=== PATIENT | male | born 1970 | race Caucasian/White ===

== ENCOUNTER 2022-03-20 11:37 | Emergency (ER) | payer OTHER, SELFPAY ==
[2022-03-20 11:38] VITALS: BP 175/118; PULSE 73; RESP 18; TEMP 36.9; O2SAT 98; BMI 36.7
--- NOTE | 2022-03-20 11:45 | PC.NURSE ---
UA sent to lab.
[2022-03-20 11:48] LABS: Microscopic, Urine URINE MICROSCOPIC (MICROSCOPIC)
--- NOTE | 2022-03-20 11:49 | PC.NURSE ---
DR. OVIEDO AT BEDSIDE FOR EVALUATION
[2022-03-20 11:50] LABS: Appearance,Urine CLEAR (Clear); Blood, Urine 2+ (Negative); Color,Urine YELLOW (Yellow); Glucose,Urine (UA) Negative (Negative); Ketones,Urine TRACE (Negative); Leukocyte Esterase,Urine Negative (Negative); Nitrate,Urine Negative (Negative); Protein,Urine 2+ (Negative); Urobilinogen,Urine 0.2 EU/dl (0.2)
[2022-03-20 11:51] VITALS: BMI 36.7
[2022-03-20 11:53] LABS: Bilirubin,Urine 1+ (Negative)
--- NOTE | 2022-03-20 11:54 | HMH.EDGENADL ---
Discharge Plan Disposition Chief Complaint: Abdominal Pain Instructions Patient Instructions: DI for Acute Abdominal Pain Discharge ED Provider: Rodrigo Youngblood General Adult HPI General Chief complaint: Abdominal Pain Stated complaint: Stomach pain,vomiting Time Seen by Provider: 03/20/22 11:40 Mode of Arrival: Ambulatory Limitations: No Limitations Description of Symptoms (Recalled from ER Triage Doc. by RN): PT REPORTS BURNING ABDOMINAL PAIN WITH N/V/D SINCE LAST NIGHT History of Present Illness HPI narrative: Patient presents with epigastric pain, vomiting and diarrhea that began last evening after his significant other served him spicy pizza reportedly. He denies chest pain or shortness of air symptoms are described as moderate to severe and worse with food. Related Data Allergies Allergy/AdvReac Type Severity Reaction Status Date / Time No Known Allergies Allergy Verified 03/20/22 11:54 PFSH [facility] Social History Smoking Status: Current every day smoker ROS Obtained: Yes All systems reviewed & no additional complaints except as documented Physical Exam General General appearance: alert and in no apparent distress Head Head exam: atraumatic, normocephalic and normal inspection Eye Eye exam: Present normal appearance, PERRL and EOMI ENT ENT exam: Present normal exam, normal oropharynx, mucous membranes moist, TM's normal bilaterally and normal external ear exam Neck Neck exam: Present normal inspection, full ROM and trachea midline; Absent meningismus or lymphadenopathy Chest Chest inspection: Present normal inspection and symmetric chest wall rise; Absent tenderness Respiratory Respiratory exam: Present normal lung sounds bilaterally; Absent respiratory distress Cardiovascular Cardiovascular exam: Present regular rate and normal rhythm; Absent JVD Abdominal Exam Abdominal exam: Present tenderness (Epigastric tenderness that is mild to moderate, there is no right upper quadrant tenderness. There is no rebound or guarding.) Extremities Exam Extremities exam: Present normal inspection, full ROM and normal capillary refill; Absent calf tenderness Back Exam Back exam: Present normal inspection; Absent tenderness Neurological Exam Neurological exam: Present alert and oriented X3 Psychiatric Psychiatric exam: Present normal affect and normal mood Skin Skin exam: Present warm, dry, intact and normal color Lymphatic Lymphatic Findings: no adenopathy Medical Decision Making Medical Records Medical records reviewed: Yes I reviewed the patient's medical records. Juan Inquiry Pt receiving controlled substance: No Vital Signs: 03/20/22 11:38 Temperature 98.4 F Temperature Source Oral Pulse Rate [Radial] 73 Respiratory Rate 18 Blood Pressure [Right Arm] 175/118 H Blood Pressure Mean [Right Arm] 137 Blood Pressure Source [Right Arm] Automatic Cuff Blood Pressure Position [Right Arm] Sitting 02 Sat by Pulse Oximetry 98 Oxygen Delivery Method Room Air Lab Data Lab Results 03/20/22 11:43: Urine Color Yellow, Urine Appearance Clear, Urine pH 8.0, Ur Specific [place] 1.020, Urine Protein 2+, Urine Glucose (UA) Negative, Urine Ketones Trace, Urine Blood 2+, Urine Nitrate Negative, Urine Bilirubin 1+ A, Urine Urobilinogen 0.2, Ur Leukocyte Esterase Negative Orders (Tests/Meds): ED MEDICATIONS Generic Name Dose Route Start Last Admin Trade Name Freq PRN Reason Stop Dose Admin Belladonna Alkaloids 60 ml 03/20/22 11:51 Belladonna Alkaloids 60 Ml Ml PO 03/20/22 11:52 ONCE ONE Sodium Chloride 1,000 mls @ 999 mls/hr 03/20/22 12:00 Sod Chlor 0.9% 1000ml Bag IV 03/20/22 13:00 .Q1H1M SVITLANA Ondansetron HCl 4 mg 03/20/22 11:51 Ondansetron 4mg/2ml Vial IV 03/20/22 11:52 ONCE ONE Pantoprazole Sodium 40 mg 03/20/22 11:51 Pantoprazole 40mg Vial IV 03/20/22 11:52 ONCE ONE Sodium Chloride 10 ml 03/20/22 11:51 S
[2022-03-20 12:00] VITALS: BP 207/131; PULSE 79; O2SAT 97
[2022-03-20 12:02] LABS: Bacteria,Urine Trace /lpf; Squamous Epithelial Cell,Urine Occasional #/hpf (0-5)
[2022-03-20 12:17] LABS: Basophils # 0.1 K/mm3 (0-0.2); Basophils % 0.4 % (0.1-2.0); Eosinophils # 0.1 K/mm3 (0.0-0.4); Eosinophils % 0.9 % (0.1-12.0); Hematocrit 50.1 % (42.0-52.0); Hemoglobin 16.3 g/dL (14.1-18.0); Lymphocytes % 7.7 % (10-50); Mean Corpuscular HGB Conc 32.6 g/dL (31.8-35.4); Mean Corpuscular Hemoglobin 31.2 pg (27.0-31.2); Mean Corpuscular Volume 95.7 fl (80-94); Mean Platelet Volume 7.5 fl (7.4-10.4); Monocytes # 0.3 K/mm3 (0.1-1.0); Monocytes % 2.3 % (1.7-9.3); Neutrophils # 11.2 K/mm3 (1.8-7.8); Neutrophils % 88.7 % (37.0-80.0); Platelet Count 402 K/mm3 (142-424); Red Blood Count 5.23 M/mm3 (4.60-6.20); White Blood Count 12.6 K/mm3 (4.8-10.8)
[2022-03-20 12:18] LABS: Chloride 103 mmol/L (98-107); Potassium 3.7 mmoL/L (3.5-5.1); Sodium 138 mmol/L (136-145)
[2022-03-20 12:21] LABS: Alanine Aminotransferase 28 U/L (12-78); Albumin Level 4.4 g/dl (3.5-5.0); Albumin/Globulin Ratio 1.3 (1.1-1.8); Alkaline Phosphatase 123 U/L (38-126); Anion Gap 10.7 mEq/L (5-15); Aspartate Amino Transferase 35 U/L (17-59); Bilirubin,Total 0.3 mg/dl (0.2-1.3); Blood Urea Nitrogen 11 mg/dl (9-20); Calcium 9.3 mg/dl (8.4-10.2); Carbon Dioxide 28 mmol/L (22.0-30.0); Creatinine Clearance Estimated 242 mL/min (50-200); Estimated Glomerular Filt Rate 143 ml/min (>60); GFR (African American) 173 ML/MIN (>60); Globulin 3.4 g/dL (1.3-3.2); Glucose 130 mg/dl (74-100); Lipase 523 U/L (23-300); Total Protein,Serum 7.8 g/dl (6.3-8.2)
[2022-03-20 12:22] LABS: MANUAL DIFFERENTIAL MANUAL DIFFERENTIAL (MANUAL DIFF)
[2022-03-20 12:30] LABS: Lymphocytes % 6 % (10-50); Monocytes % 1 % (2-9); Neutrophils % 93 % (42-76); Total Cells Counted 100
[2022-03-20 12:31] VITALS: BP 182/113; PULSE 69; O2SAT 96
[2022-03-20 12:31] LABS: Platelet Estimate Slight Increase; RBC Morphology Normal
--- NOTE | 2022-03-20 12:41 | CT_ITS ---
FINAL REPORT TECHNIQUE: IV contrast enhanced exam CLINICAL HISTORY: abd pain/panc FINDINGS: Abdomen: No acute density is seen within the lung bases. Gallbladder is unremarkable. Solid abdominal organs are unremarkable. No bowel obstruction is present. There is no free air. No fluid collection is seen. There is no adenopathy. Pelvis: The appendix is normal. No bowel wall thickening is present. There is no free fluid. No pelvic mass is seen. IMPRESSION: Unremarkable exam Reviewed, Interpreted and Dictated by Leigh Crawford MD Transcribed by Efrain Arciniega Authenticated and . [facility]
--- NOTE | 2022-03-20 13:02 | PC.NURSE ---
PT TO CT
--- NOTE | 2022-03-20 13:15 | PC.NURSE ---
PT RETURNED FROM CT
[2022-03-20 13:31] VITALS: BP 179/105; PULSE 73; O2SAT 96
[2022-03-20 14:00] VITALS: BP 193/119; PULSE 88; O2SAT 97
--- NOTE | 2022-03-20 14:01 | PC.NURSE ---
ED MD AT BEDSIDE TO DISCUSS POC WITH PT AND FAMILY
[2022-03-20 14:24] VITALS: BP 144/103; PULSE 82; RESP 17; TEMP 36.8; O2SAT 99
== END 2022-03-20 14:30 | disposition home or self-care (01) ==
PROVIDERS: Emergency Provider Emergency Medicine
DX: R10.9 Unspecified abdominal pain (principal); R11.2 Nausea with vomiting, unspecified; R19.7 Diarrhea, unspecified
CPT/HCPCS: 74177; 80053; 81001; 83690; 85007; 85025; 96365; 96375; 99284; J2405; Q9967

== ENCOUNTER 2023-05-03 08:30 | Emergency (ER) | payer OTHER, SELFPAY ==
[2023-05-03 08:31] VITALS: BP 171/127; PULSE 78; RESP 16; TEMP 36.7; O2SAT 94; BMI 35.9
--- NOTE | 2023-05-03 08:53 | PC.NURSE ---
DR ESPARZA AT BEDSIDE
--- NOTE | 2023-05-03 08:57 | CT_ITS ---
FINAL REPORT CLINICAL HISTORY: lower abd pain, n/v decreased bm/flatus COMPARISON: 03/20/2022 FINDINGS: CT OF THE ABDOMEN AND PELVIS WITH CONTRAST Axial CT images of the abdomen and pelvis were obtained after the administration of IV contrast. Coronal and sagittal reformatted images were also obtained and reviewed. This study was performed with techniques to keep radiation doses as low as reasonably achievable (ALARA). Individualized dose reduction techniques using automated exposure control or adjustment of mA and/or kV according to the patient's size were employed. Abdomen: The lung bases are clear. The heart is normal in size. There is mild fatty infiltration of the liver present. The spleen is unremarkable. No adrenal mass is present. The pancreas has an unremarkable appearance. The kidneys are normal, without evidence of mass or hydronephrosis. The aorta is normal in caliber. There is no free fluid or adenopathy. No mass or abnormal fluid collection is seen. A small umbilical hernia containing fat is present. Pelvis: The appendix is normal in appearance. There is widespread diverticulosis of the colon, without evidence of acute inflammatory change. The urinary bladder has a mildly thickened wall, likely inflammatory. There is no evidence of mass or adenopathy. There is no evidence of bowel obstruction. IMPRESSION: No evidence of acute intra-abdominal process. Mild bladder wall thickening, likely inflammatory. Reviewed, Interpreted and Dictated by Fantasma Pizano III, MD Transcribed by Lesley Castillo Authenticated and [facility]
--- NOTE | 2023-05-03 08:59 | ED_ITS ---
Discharge Plan Disposition Patient Disposition: Home, Self-Care Prescriptions Prescriptions: New ondansetron 4 mg tablet,disintegrating 4 mg PO Q6H PRN (Reason: nausea and vomiting) 5 Days Qty: 20 0RF No Action ondansetron HCl 4 mg tablet 4 mg PO Q6H PRN (Reason: nausea and vomiting) Qty: 14 0RF hydrocodone-acetaminophen 5-325 mg tablet 1 tab PO Q6H PRN (Reason: pain) Qty: 14 0RF lansoprazole [Prevacid] 30 mg capsule,delayed release(DR/EC) 30 mg PO Q12H Qty: 30 0RF Referrals Follow up/Referrals: Provider,Referral, MD [Primary Care Provider] - See instructions Activity Restrictions/Add. Instructions Additional Instructions/Restrictions: Your evaluation for your nausea vomiting abdominal discomfort did not yield an emergent medical condition however your urinalysis did show microscopic blood in your urine this is nonspecific and there are many causes of this including dehydration. Please follow-up with your primary care doctor to ensure resol ution and if you have consistent or persistent blood in your urine I would recommend you follow-up with a urologist as we cannot definitively rule out bladder related malignancy. Clinical Impressions Clinical Impression: Abdominal pain, lower, Nausea & vomiting, Microscopic hematuria Instructions Patient Instructions: DI for Acute Abdominal Pain Discharge ED Provider: Angie Biggs General Adult HPI General Chief complaint: Abdominal Pain Stated complaint: adominal pain Time Seen by Provider: 05/03/23 08:52 Mode of Arrival: Ambulatory Source of Information: Patient Limitations: No Limitations Description of Symptoms (Recalled from ER Triage Doc. by RN): Patient reports all over abdomen pain that started on Sunday. Does report vomiting. States he has had this in the past and it was gastroenteritis and it feels like that ag ain. History of Present Illness HPI narrative: Patient is a 53-year-old male presenting today with 2 days of nausea and vomiting decreased flatus and bowel movements. Patient denies any history of any abdominal surgeries denies any diarrhea. Denies any fevers or chills. Does state that he had 8 alcoholic beverages on Sunday the night before this began. However he denies any epigastric abdominal discomfort no history of any pancrea titis. No urinary symptoms including hematuria. Related Data Previous Rx's Medication Instructions Recorded hydrocodone 5 mg-acetaminophen 325 1 tab PO Q6H PRN pain #14 tabs 03/20/22 mg tablet lansoprazole 30 mg capsule,delayed 30 mg PO Q12H #30 caps 03/20/22 release (Prevacid) ondansetron HCl 4 mg tablet 4 mg PO Q6H PRN nausea and 03/20/22 vomiting #14 tabs ondansetron 4 mg disintegrating 4 mg PO Q6H PRN nausea and 05/03/23 tablet vomiting 5 days #20 tabs Allergies Allergy/AdvReac Type Severity Reaction Status Date / Time No Known Allergies Allergy Verified 03/20/22 11:54 [facility] Disclaimer: The information contained in this section may have been updated after the patient was seen, as this information can be updated by other users. Social History Smoking Status: Former smoker alcohol intake: current current occupational status: other Travel in the last 8 weeks: None ROS Obtained: Yes All systems reviewed & no additional complaints except as documented Physical Exam General General appearance: alert Respiratory Respiratory exam: Present normal lung sounds bilaterally; Absent respiratory distress Cardiovascular Cardiovascular exam: Present regular rate; Absent tachycardia Abdominal Exam Abdominal exam: Present soft, distention and tenderness (Right lower quadrant tenderness with deep palpation no significant rebound or guarding or masses for) Neurological Exam Neurological exam: Present alert Medical Decision Making Juan Inquiry Pt receiving controlled substance: No Juan was queried for this patient: No Vital Signs: 05/03/23 08:31 Temperature 98.1 F Temperature Source Oral Pulse Rate [Radial] 78 Respiratory Rate 16 Blood Pressure [Right Arm] 171/127 H Blood Pressure Mean [Right Arm] 141 Blood Pressure Source [Right Arm] Automatic Cuff Blood Pressure Position [Right Arm] Sitting 02 Sat by Pulse Oximetry 94 L Oxygen Delivery Method Room Air Lab Data Lab results reviewed: Yes I reviewed the patient's lab results. Lab Results 05/03/23 08:35: Urine Color Yellow, Urine Appearance Clear, Urine pH 6.0, Ur Specific [place] 1.025, Urine Protein 2+, Urine Glucose (UA) Negative, Urine Ketones 1+, Urine Blood 2+, Urine Nitrate Negative, Urine Bilirubin 1+ A, Urine Urobilinogen 0.2, Ur Leukocyte Esterase Negative, Urine RBC 3-5, Urine WBC None, Ur Squamous Epith Cells Occasional, Urine Bacteria None, Urine Mucus Trace 05/03/23 08:50: WBC 14.5 H, RBC 5.30, Hgb 16.3, Hct 48.6, MCV 91.5, MCH 30.8, MCHC 33.6, RDW 13.3, Plt Count 373, MPV 6.9 L, Neut % (Auto) 75.2, Lymph % (Auto) 19.5, [place] % (Auto) 4.0, Eos % (Auto) 0.7, Baso % (Auto) 0.5, Neut # (Auto) 10.9 H, Lymph # (Auto) 2.8, [place] # (Auto) 0.6, Eos # (Auto) 0.1, Baso # (Auto) 0.1, Sodium 134 L, Potassium 3.5, Chloride 98, Carbon Dioxide 28, Anion Gap 11.5, BUN 11, Creatinine 0.80, Estimated Creat Clear 175, Estimated GFR 102, Est GFR ( Amer) 123, Glucose 151 H, Calcium 8.7, Total Bilirubin 0.9, AST 57, ALT 69, Alkaline Phosphatase 83, Total Protein 8.0, Albumin 4.3, Globulin 3.7 H, Albumin/Globulin Ratio 1.2, Lipase 94 05/03/23 08:50 05/03/23 08:50 Orders (Tests/Meds): ED MEDICATIONS Generic Name Dose Route Start Last Admin Trade Name Freq PRN Reason Stop Dose Admin Sodium Chloride 10 ml 05/03/23 09:19 Sodium Chloride 0.9% 10ml Flush Syringe IV 06/02/23 09:18 NEEDED PRN Maintain IV Site Discontinued Medications Generic Name Dose Route Start Last Admin Trade Name Freq PRN Reason Stop Dose Admin Lactated Ringer's 1,000 mls @ 999 mls/hr 05/03/23 09:00 05/03/23 09:05 Lactated Ringer's 1000 Ml Bag IV 05/03/23 10:00 999 mls/hr .Q1H1M SVITLANA Administration Iopamidol 75 ml 05/03/23 09:23 05/03/23 09:25 Iopamidol-370 (76%);100ml Bottle IV 05/03/23 09:24 75 ml ONCE ONE Administration Morphine Sulfate 4 mg 05/03/23 08:57 05/03/23 09:04 Morphine 4mg/Ml Syringe IV 05/03/23 08:58 4 mg ONCE ONE Administration Ondansetron HCl 4 mg 05/03/23 08:57 05/03/23 09:04 Ondansetron 4mg/2ml Vial IV 05/03/23 08:58 4 mg ONCE ONE Administration Sodium Chloride 10 ml 05/03/23 09:23 05/03/23 09:24 Sodium Chloride 0.9% 10ml Syr (Rad Only) IV 05/03/23 09:24 10 ml ONCE ONE Administration ORDERS Category Date Time Status CT abdomen pelvis w con Stat Cat Scan 05/03/23 08:57 Completed CBC w/Auto Diff [Complete Blood Count Auto Diff] Stat Lab 05/03/23 08:50 Completed CMP [Comprehensive Metabolic Panel] Stat Lab 05/03/23 08:50 Completed Lipase Stat Lab 05/03/23 08:50 Completed UA [Urinalysis and Microscopic] Stat Lab 05/03/23 08:35 Completed Medical Decision Narrative: Patient is a 53-year-old male with lower abdominal discomfort decreased flatus and bowel movements and nausea vomiting for 2 days leading on the differential would be a bowel obstruction also could be constipation gastritis kidney stone etc. Will get a contrasted CT scan for further evaluation. IV fluids pain medicine nausea medicine have been administered will reassess. Reassessment 10:52 AM patient feeling somewhat better is serial abdominal exams are benign at this point CT scan performed I personally interpreted and also reviewed radiology read which shows no acute abnormality some mild inflammatory changes in the bladder wall itself. No evidence of a urinary tract infection on urinalysis however there is some microscopic hematuria. This is nonspecific I advised the patient follow-up with his primary care doctor as this could be an underlying malignancy but is something he needs to follow to resolution or follow-up with a urologist which he understood. He was discharged in stable condition. Critical Care Critical Care Time Critical Care Time: No
[2023-05-03] MEDS: MORPHINE 4MG/ML SYRINGE 4 MG IV (09:04)
[2023-05-03] MEDS: ONDANSETRON 4MG/2ML VIAL 4 MG IV (09:04)
[2023-05-03] MEDS: LACTATED RINGERS 1000ML 1,000 ML 999 ML IV (09:05)
[2023-05-03 09:06] LABS: Basophils # 0.1 K/mm3 (0-0.2); Basophils % 0.5 % (0.1-2.0); Eosinophils # 0.1 K/mm3 (0.0-0.4); Eosinophils % 0.7 % (0.1-12.0); Hematocrit 48.6 % (42.0-52.0); Hemoglobin 16.3 g/dL (14.1-18.0); Lymphocytes # 2.8 K/mm3 (0.7-4.5); Lymphocytes % 19.5 % (10-50); Mean Corpuscular HGB Conc 33.6 g/dL (31.8-35.4); Mean Corpuscular Hemoglobin 30.8 pg (27.0-31.2); Mean Corpuscular Volume 91.5 fl (80-94); Mean Platelet Volume 6.9 fl (7.4-10.4); Monocytes # 0.6 K/mm3 (0.1-1.0); Neutrophils # 10.9 K/mm3 (1.8-7.8); Neutrophils % 75.2 % (37.0-80.0); Platelet Count 373 K/mm3 (142-424); Red Cell Distribution Width 13.3 % (11.5-17.5); White Blood Count 14.5 K/mm3 (4.8-10.8)
[2023-05-03 09:19] LABS: Chloride 98 mmol/L (98-107); Potassium 3.5 mmoL/L (3.5-5.1); Sodium 134 mmol/L (136-145)
[2023-05-03 09:22] LABS: Alanine Aminotransferase 69 U/L (12-78); Albumin Level 4.3 g/dl (3.5-5.0); Albumin/Globulin Ratio 1.2 (1.1-1.8); Alkaline Phosphatase 83 U/L (38-126); Anion Gap 11.5 mEq/L (5-15); Aspartate Amino Transferase 57 U/L (17-59); Bilirubin,Total 0.9 mg/dl (0.2-1.3); Blood Urea Nitrogen 11 mg/dl (9-20); Calcium 8.7 mg/dl (8.4-10.2); Carbon Dioxide 28 mmol/L (22.0-30.0); Creatinine Clearance Estimated 175 mL/min (50-200); Estimated Glomerular Filt Rate 102 ml/min (>60); GFR (African American) 123 ML/MIN (>60); Globulin 3.7 g/dL (1.3-3.2); Glucose 151 mg/dl (74-100); Lipase 94 U/L (23-300)
[2023-05-03] MEDS: SODIUM CHLORIDE 0.9% 10ML SYR (RAD ONLY) 10 ML IV (09:24)
[2023-05-03] MEDS: IOPAMIDOL-370 (76%);100ML BOTTLE 75 ML IV (09:25)
[2023-05-03 10:10] LABS: Microscopic, Urine URINE MICROSCOPIC (MICROSCOPIC)
[2023-05-03 10:13] LABS: Appearance,Urine CLEAR (Clear); Blood, Urine 2+ (Negative); Color,Urine YELLOW (Yellow); Glucose,Urine (UA) Negative (Negative); Ketones,Urine 1+ (Negative); Leukocyte Esterase,Urine Negative (Negative); Nitrate,Urine Negative (Negative); Protein,Urine 2+ (Negative); Specific Gravity, Urine 1.025 (1.005-1.030); Urobilinogen,Urine 0.2 EU/dl (0.2)
[2023-05-03 10:28] LABS: Bilirubin,Urine 1+ (Negative)
[2023-05-03 10:32] LABS: Squamous Epithelial Cell,Urine Occasional #/hpf (0-5)
[2023-05-03 10:33] LABS: Mucus,Urine Trace /lpf
[2023-05-03 10:56] VITALS: BP 168/90; PULSE 67; RESP 16; TEMP 36.7; O2SAT 97
== END 2023-05-03 10:57 | disposition home or self-care (01) ==
PROVIDERS: Emergency Provider Student in an Organized Health Care Education/Training Program
DX: R10.30 Lower abdominal pain, unspecified (principal); R11.2 Nausea with vomiting, unspecified; R31.29 Other microscopic hematuria; Z87.891 Personal history of nicotine dependence
CPT/HCPCS: 74177; 80053; 81001; 83690; 85025; 96361; 96374; 96375; 99285; J2405; Q9967